=== PATIENT | female | born 1980 | race Caucasian/White ===

== ENCOUNTER 2021-08-28 10:11 | Day surgery (SDC) | payer SELFPAY ==
[~2021-08-28] VITALS: Ht 149.9 cm; Wt 72.7 kg
[2021-08-28] VITALS (8 sets, daily range): BP systolic 91–118; BP diastolic 53–68; PULSE 52–76; TEMP 96.8–97.3
[2021-08-28] MEDS ORDERED: PRIL40 PO (10:46)
--- NOTE | 2021-08-28 12:15 | NUR ---
RETURNS TO ROOM 5 FROM PROCEDURE ROOM. PATIENT ALERT/ORIENTED. SITS IN RECLINER WITH FEET ELEVATED. DENIES NAUSEA, ABD PAIN OR DYSPHAGIA.
--- NOTE | 2021-08-28 12:45 | NUR ---
AWAKE, ALERT. SIGNIFICANT OTHER IN ROOM.
--- NOTE | 2021-08-28 13:06 | NUR ---
DR. HUDSON HERE TO VISIT WITH PATIENT. PATIENT CONTINUES TO DENY PAIN, NAUSEA OR DYSPHAGIA.
--- NOTE | 2021-08-28 13:45 | NUR ---
TOLERATES PO APPLESAUCE AND JUICE WITHOUT NAUSEA. SWALLOWS WITHOUT DIFFICULTY
== END 2021-08-28 14:25 | disposition home or self-care (01) ==
LOC: SDCO 10:11
DX: K80.50 Calculus of bile duct without cholangitis or cholecystitis without obstruction (principal); R17 Unspecified jaundice
CPT/HCPCS: C1769; J2405; J2704; J3010; J7030; Q9967